=== PATIENT | female | born 1945 | race Caucasian/White ===

== ENCOUNTER 2016-10-27 06:26 | Day surgery (SDC) | payer MEDICARE ==
[~2016-10-27 06:26] MED LIST: Acetaminophen TAB* 325 MG PO PRN; Buffered Lidocaine 1% SYRIN* 5 ML/SYR SYRINGE INTRADERM ONE
[2016-10-27] MEDS ORDERED: fentaNYL* 50 MCG/ML 2 ML VIAL (100 MCG VIAL) ONE (07:21)
[2016-10-27] MEDS ORDERED: Midazolam* 1 MG/ML 2 ML VIAL (2 MG) ONE ×2 (07:21→07:59)
[2016-10-27 08:30] VITALS: BP 116/64
--- NOTE | 2016-10-27 09:19 | OP ---
OPERATIVE NOTE: DATE OF OPERATION: 10/27/16 DATE OF : 45 SURGEON: Ernesto Garza MD PREOPERATIVE DIAGNOSIS: Cataract, right eye. POSTOPERATIVE DIAGNOSIS: Cataract, right eye. OPERATIVE PROCEDURE: Phacoemulsification, right eye with IOL. PROCEDURE: The patient was brought to the operating room after being given 1/2% Alcaine with epinep hrine drops in the preoperative area. The eye was prepped and draped in the usual sterile fashion. Sterile drape and eyelid speculum were placed. Again, topical 1/2% Alcaine with epinephrine was gi doris. A paracentesis incision was made at the 9 o'clock position with the No.75 blade. Clear cornea incision 2.2 x 2.2-mm was created at the 12 o'clock position starting at the anterior limbus using the 2.2-mm keratome. The anterior chamber was irrigated with 0.4 mL of 1% non-preservative intracam eral lidocaine and filled with DisCoVisc. A capsulorrhexis was completed using the cystotome and th e Utrata forceps. Hydrodissection was performed with balanced salt solution. The lens nucleus was r emoved with the Phacoemulsification handpiece without incident. Cortex was removed with the irrigat ion-aspiration handpiece. The capsular bag was re-inflated using DisCoVisc and an SN60WF 22.5 impla nt was inserted with the shooter. The irrigation-aspiration handpiece was used to remove all residu al DisCoVisc. The eye was refilled with balanced salt solution and the wound checked and found to b e watertight. Topical Maxitrol drops were given. [id number]/[facility] #: [id number]
[2016-10-27] MEDS ORDERED: Neomycin/Polymy/Dex OPTH.SUSP* MAXITROL 0.1% 5 ML ONE (12:11)
[2016-10-27] MEDS ORDERED: Cyclopentolate 1% OPTH.SOL* 2 ML BTL ONE (12:11)
[2016-10-27] MEDS ORDERED: Povidone Iodine 5% OPTH* 30 ML BTL ONE (12:11)
[2016-10-27] MEDS ORDERED: Lidocaine 2% EPI 1:200000 MPF* 20 ML VIAL ONE (12:11)
[2016-10-27] MEDS ORDERED: Flurbiprofen 0.03% OPTH.SOL* 2.5 ML BTL ONE (12:11)
[2016-10-27] MEDS ORDERED: Lidocaine 1% MPF* 2 ML VIAL ONE (12:11)
[2016-10-27] MEDS ORDERED: Phenylephrine 2.5% OPTH.SOL* 2 ML BTL ONE (12:11)
[2016-10-27] MEDS ORDERED: Proparacaine 0.5% OPHTH.SOL* 15 ML BTL ONE (12:11)
[2016-10-27] MEDS ORDERED: acetaZOLAMIDE TAB* 250 MG ONE (12:11)
== END 2016-10-27 08:20 | disposition home or self-care (01) ==
LOC: OREAST 06:26
PROVIDERS: ATTEND Specialist
DX: H25.811 Combined forms of age-related cataract, right eye (principal); Z79.82 Long term (current) use of aspirin; I10 Essential (primary) hypertension
CPT/HCPCS: A9270-GY; J2250; J3010; V2632

== ENCOUNTER 2016-11-03 06:31 | Day surgery (SDC) | payer MEDICARE ==
[~2016-11-03 06:31] MED LIST changes: +Buffered Lidocaine 0.9% SYRIN* 5 ML/SYR SYRINGE INTRADERM ONE; -Buffered Lidocaine 1% SYRIN* 5 ML/SYR SYRINGE INTRADERM ONE
[2016-11-03] MEDS ORDERED: Povidone Iodine 5% OPTH* 30 ML BTL ONE (07:06)
[2016-11-03] MEDS ORDERED: Neomycin/Polymy/Dex OPTH.SUSP* MAXITROL 0.1% 5 ML ONE (07:06)
[2016-11-03] MEDS ORDERED: Cyclopentolate 1% OPTH.SOL* 2 ML BTL ONE (07:06)
[2016-11-03] MEDS ORDERED: acetaZOLAMIDE TAB* 250 MG ONE (07:06)
[2016-11-03] MEDS ORDERED: Lidocaine 1% MPF* 2 ML VIAL ONE (07:06)
[2016-11-03] MEDS ORDERED: Lidocaine 2% EPI 1:200000 MPF* 20 ML VIAL ONE (07:06)
[2016-11-03] MEDS ORDERED: Flurbiprofen 0.03% OPTH.SOL* 2.5 ML BTL ONE (07:06)
[2016-11-03] MEDS ORDERED: Phenylephrine 2.5% OPTH.SOL* 2 ML BTL ONE (07:06)
[2016-11-03] MEDS ORDERED: Proparacaine 0.5% OPHTH.SOL* 15 ML BTL ONE (07:07)
[2016-11-03] MEDS ORDERED: Buffered Lidocaine 0.9% SYRIN* 5 ML/SYR SYRINGE ONE (07:07)
[2016-11-03] MEDS ORDERED: Midazolam* 1 MG/ML 2 ML VIAL (2 MG) ONE (07:39)
[2016-11-03 08:27] VITALS: BP 133/65
--- NOTE | 2016-11-03 08:58 | OP ---
DATE OF OPERATION: 11/03/16 [facility] DATE OF : 45 SURGEON: Ernesto Garza M.D. PREOPERATIVE DIAGNOSIS: Cataract, left eye. POSTOPERATIVE DIAGNOSIS: Cataract, left eye. OPERATIVE PROCEDURE: Phacoemulsification, left eye with IOL. DESCRIPTION OF PROCEDURE: The patient was brought to the operating room after being given 1/2% Alcaine with epinephrine drops in the preoperative area. The eye was prepped and draped in the usual sterile fashion. Sterile drape and eyelid speculum were placed. Again, topical 1/2% Alcaine with epinephrine was given. A paracentesis incision was made at the 3 o'clock position with the No.75 blade. Clear cornea incision 2.2 x 2.2-mm was created at the 6 o'clock position starting at the anterior limbus using the 2.2-mm keratome. The anterior chamber was irrigated with 0.4 mL of 1% non-preservative intracameral lidocaine and filled with DisCoVisc. A capsulorrhexis was completed using the cystotome and the Utrata forceps. Hydrodissection was performed with balanced salt solution. The lens nucleus was removed with the Phacoemulsification handpiece without incident. Cortex was removed with the irrigation-aspiration handpiece. The capsular bag was re-inflated using DisCoVisc and an [id number] 23 implant was inserted with the shooter. The irrigation-aspiration handpiece was used to remove all residual DisCoVisc. The eye was refilled with balanced salt solution and the wound checked and found to be watertight. Topical Maxitrol drops were given. [id number]/[facility] #: [id number] [facility]
== END 2016-11-03 08:23 | disposition home or self-care (01) ==
LOC: OREAST 06:31
PROVIDERS: ATTEND Specialist
DX: H25.812 Combined forms of age-related cataract, left eye (principal); D31.31 Benign neoplasm of right choroid; I25.10 Atherosclerotic heart disease of native coronary artery without angina pectoris; I25.2 Old myocardial infarction; Z95.5 Presence of coronary angioplasty implant and graft; E78.4 Other hyperlipidemia; K21.9 Gastro-esophageal reflux disease without esophagitis
CPT/HCPCS: A9270-GY; J2250; V2632

== ENCOUNTER 2017-12-02 08:42 | Emergency (ER) | payer MEDICARE ==
[2017-12-02] MEDS ORDERED: Ibuprofen TAB* 600 MG PO ONE (09:45)
--- NOTE | 2017-12-02 10:23 | RAD ---
INDICATION: Left knee injury. TECHNIQUE: 4 views of the left knee were obtained. FINDINGS: The bones are normal alignment. There is a moderate joint effusion present. No fracture is seen. There is mild osteoarthritic change in the patellofemoral compartment. IMPRESSION: JOINT EFFUSION, NO FRACTURE IS SEEN.
--- NOTE | 2017-12-02 11:04 | ED ---
Lower Extremity - HPI Summary HPI Summary: Patient presents with abrupt onset right knee pain while walking in the grass yesterday. She reports she must have stepped oddly and felt a pop with acute pain in her left knee. Currently she has pain with weightbearing and pain is worse when she fully extends her knee. She is able to flex it however it is painful beyond 90. Denies numbness, tingling, weakness, fever, chills, redness , obvious swelling. She admits to history of OA in her right knee. No previous injury or OA in the left knee that she is aware of. She is not taking anything or tried anything prior to arrival. 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 - History of Current Complaint Chief Complaint: EDExtremityLower Stated Complaint: LT KNEE PAIN Time Seen by Provider: 12/02/17 09:20 Hx Obtained From: Patient, Family/Medical Practice Assistant - female friend Pain Intensity: 6 - Allergies/Home Medications Allergies/Adverse Reactions: Allergies Allergy/AdvReac Type Severity Reaction Status Date / Time clopidogrel [From Plavix] Allergy Rash Verified 12/02/17 09:03 sunflower seed Allergy Airway Verified 12/02/17 09:03 Obstruction Home Medications: Home Medications Aspirin EC TAB* [Ecotrin EC Low Dose 81 MG*] 81 mg PO DAILY 12/02/17 [History Confirmed 12/02/17] Atorvastatin* [Lipitor*] 20 mg PO DAILY 12/02/17 [History Confirmed 12/02/17] Lisinopril TAB* [Prinivil TAB*] 5 mg PO DAILY 12/02/17 [History Confirmed ] PMH/Surg Hx/FS Hx/Imm Hx Previously Healthy: Yes Endocrine/Hematology History: Denies: Hx Anticoagulant Therapy, Hx Blood Disorders, Hx Diabetes, Hx Thyroid Disease Cardiovascular History: Reports: Hx Angina, Other Cardiovascular Problems/ Disorders - takes lipitor and lisinopril but denies cardiac dz Denies: Hx Coronary Artery Disease, Hx Hypercholesterolemia, Hx Hypertension , Hx Myocardial Infarction, Hx Pacemaker/ICD, Hx Valvular Heart Disease Respiratory History: Denies: Hx Asthma, Hx Chronic Obstructive Pulmonary Disease (COPD), Other Respiratory Problems/Disorders GI History: Reports: Hx Gastroesophageal Reflux Disease Denies: Hx Ulcer, Other GI Disorders Musculoskeletal History: Reports: Hx Arthritis - Rt knee Denies: Other Musculoskeletal History Sensory History: Reports: Hx Cataracts - helen, Hx Contacts or Glasses Denies: Hx Hearing Aid Opthamlomology History: Reports: Hx Cataracts - helen, Hx Contacts or Glasses Neurological History: Denies: Other Neuro Impairments/Disorders Psychiatric History: Denies: Hx Panic Disorder - Surgical History Surgery Procedure, Year, and Place: Right Knee Arthroscopy,PTCA W/ STENT, LT ANKLE Hx Anesthesia Reactions: No Infectious Disease History: No Infectious Disease History: Denies: Hx Hepatitis, Hx Human Immunodeficiency Virus (HIV), Traveled Outside the [place] in Last 30 Days - Social History Occupation: Employed Full-time - house cleans Alcohol Use: None Hx Substance Use: No Substance Use Type: Reports: None Hx Tobacco Use: No Smoking Status (MU): Never Smoked Tobacco Review of Systems Constitutional: Negative Negative: Fever, Chills, Fatigue Respiratory: Negative Gastrointestinal: Negative Genitourinary: Negative Positive: Arthralgia, Decreased ROM. Negative: Myalgia, Edema Skin: Negative Neurological: Negative Psychological: Normal All Other Systems Reviewed And Are Negative: Yes Physical Exam Triage Information Reviewed: Yes Vital Signs On Initial Exam: Initial Vitals Temp Pulse Resp BP Pulse Ox 98.8 F 79 18 137/76 95 12/02/17 09:00 12/02/17 09:00 12/02/17 09:00 12/02/17 09:00 12/02/17 09:00 Vital Signs Reviewed: Yes Appearance: Positive: Well-Appearing, No Pain Distress - at rest, Obese Skin: Positive: Warm, Skin Color Reflects Adequate Perfusion, Dry - no erythema , no ecchymosis, no edema, no lesions over effected area Head/Face: Positive: Normal Head/Face Inspection Eyes: Positive: EOMI ENT: Positive: Hearing grossly normal Respiratory/Lung Sounds: Positive: Breath Sounds Present Cardiovascular: Positive: Pulses are Symmetrical in both Upper and Lower Extremities Musculoskeletal: Positive: Limited @ - pt reports pain w/ full extension but she is able to move into this position; also has limitation w/ flexion past 45 degrees, Pain @ - Rt medial knee Neurological: Positive: Normal, Sensory/Motor Intact, Alert, Oriented to Person Place, Time, CN Intact II-III, Reflexes Intact Psychiatric: Positive: Normal Diagnostics - Vital Signs Vital Signs Temp Pulse Resp BP Pulse Ox 12/02/17 09:00 98.8 F 79 18 137/76 95 - Laboratory Lab Statement: Any lab studies that have been ordered have been reviewed, and results considered in the medical decision making process. Lower Extremity Course/Dx - Course Course Of Treatment: Pt's knee XR reveals mild OA and moderate joint effusion. Explained this could be OA flair up and/or connective tissue sprain/irritation ( ie. ligament/meniscal). Advised RICE and limited weight bearing with crutches. She will f/u w/ PCP in 1-2 weeks if pain persists. In the meantime, will take NSAID's and tylenol as well as topical analgesic as needed for pain. If worse, will f/u sooner. - Diagnoses Provider Diagnoses: Acute arthritis Discharge - Sign-Out/Discharge Documenting (check all that apply): Discharge/Admit/Transfer - Discharge Plan Condition: Stable Disposition: HOME Patient Education Materials: Osteoarthritis (ED), Knee Sprain (ED), Crutch Instructions (ED) Referrals: Bruce Pedraza MD [Primary Care Provider] - Additional Instructions: Rest, Ice, Compress with knee wrap and Elevate Limit your weight bearing with crutches Follow-up with PCP in 1-2 weeks if pain persists. In the meantime, you may take ibuprofen with food and tylenol as well as biofreeze topical as needed for pain. If worse, follow-up sooner or return to ED - Billing Disposition and Condition Condition: STABLE Disposition: Home
[2017-12-02 11:20] VITALS: BP 124/74
== END 2017-12-02 11:19 | disposition home or self-care (01) ==
LOC: ED 08:42
DX: M17.11 Unilateral primary osteoarthritis, right knee (principal); I20.9 Angina pectoris, unspecified; K21.9 Gastro-esophageal reflux disease without esophagitis; Z79.82 Long term (current) use of aspirin; Z79.899 Other long term (current) drug therapy
CPT/HCPCS: 99282; A9270-GY